=== PATIENT | male | born 1940 | race Caucasian/White ===

== ENCOUNTER 2017-10-09 07:16 | Outpatient (CLI) | payer OTHER, MEDICARE ==
[2017-10-09] MEDS ORDERED: DIATR MEGLU/DIATRIZ SOD 30 ML SOLUTION PO ONE (07:39)
[2017-10-09] MEDS ORDERED: IOHEXOL 100 ML IV ONE (10:00)
== END 2017-10-09 20:34 | disposition home or self-care (01) ==
LOC: SNM 07:16
PROVIDERS: ATTEND Urology Pediatric Urology
DX: C61 Malignant neoplasm of prostate (principal); N40.0 Benign prostatic hyperplasia without lower urinary tract symptoms; K57.30 Diverticulosis of large intestine without perforation or abscess without bleeding; N28.1 Cyst of kidney, acquired; M41.85 Other forms of scoliosis, thoracolumbar region
CPT/HCPCS: 74177; 78306; A9503; Q9964; Q9967

== ENCOUNTER 2018-04-16 12:45 | Outpatient (CLI) | payer OTHER, MEDICARE | END 2018-04-16 19:41 | disposition home or self-care (01) | LOC: SRD 12:45 | PROVIDERS: ATTEND Internal Medicine | DX: J18.9 Pneumonia, unspecified organism (principal); J44.9 Chronic obstructive pulmonary disease, unspecified | CPT/HCPCS: 71046-TC ==

== ENCOUNTER 2018-11-10 14:23 | Inpatient (IN) | payer OTHER, MEDICARE ==
[~2018-11-10] VITALS: Ht 175.3 cm; Wt 77.1 kg
[2018-11-10 14:27] VITALS: BP_SYST 140
[2018-11-10] MEDS ORDERED: methylPREDNISolone SOD SUCC/PF 62.5 MG/ML VIAL IVP ONE (15:15)
[2018-11-10] MEDS ORDERED: IPRATROPIUM/ALBUTEROL SULFATE 3 ML AMPUL.NEB (DUONEB) INH ONE (15:15)
[2018-11-10 15:19] LABS: BASOPHILS % (AUTO) 0.1 % (0.0-2.0); EOSINOPHILS # (AUTO) 0.2 K/uL (0.0-0.4); EOSINOPHILS % (AUTO) 2.9 % (0.0-4.0); HEMATOCRIT 39.4 % (36-54); HEMOGLOBIN 13.3 g/dL (14.0-18.0); LYMPHOCYTES # (AUTO) 1.6 K/uL (1.0-5.5); LYMPHOCYTES % (AUTO) 29.1 % (20.5-51.5); MEAN CORPUSCULAR HEMOGLOBIN 31 pg (27-31); MEAN CORPUSCULAR HGB CONC 34 % (32-36); MEAN CORPUSCULAR VOLUME 92 fL (79.0-98.0); MONOCYTES # (AUTO) 0.6 K/uL (0.0-1.0); MONOCYTES % (AUTO) 11.2 % (1.7-9.3); NEUTROPHILS % (AUTO) 56.7 % (40.0-70.0); PLATELET COUNT (AUTO) 156 K/uL (130-430); RED BLOOD CELL COUNT(AUTO) 4.27 MIL/uL (4.2-6.2); RED CELL DISTRIBUTION WIDTH 13.5 % (9.0-15.0); WHITE BLOOD COUNT (AUTO) 5.3 K/uL (4.8-10.8)
[2018-11-10] MEDS ORDERED: IPRATROPIUM/ALBUTEROL SULFATE 3 ML AMPUL.NEB (DUONEB) ONE (15:24)
[2018-11-10 15:32] LABS: ANION GAP 7 (5-15); CALCIUM 8.8 mg/dL (8.4-11.0); CHLORIDE 98 mmol/L (98-107); CREATININE 1.02 mg/dL (0.55-1.30); GLUCOSE 92 mg/dL (70-99); POTASSIUM 4.3 mmol/L (3.5-5.1); SODIUM SERUM 132 mmol/L (136-145); UREA NITROGEN, BLOOD 21 mg/dL (8-21)
[2018-11-10 15:36] LABS: INR 1.1 (0.80-1.20); PROTHROMBIN TIME 10.9 SECS (9.5-12.5)
[2018-11-10 15:37] LABS: ALANINE AMINOTRANSFERASE 23 U/L (12-78); ALBUMIN 3.2 g/dL (3.4-4.8); ASPARTATE AMINOTRANSFERASE 20 U/L (10-37); TOTAL BILIRUBIN 0.8 mg/dL (0.0-1.0)
[2018-11-10] MEDS ORDERED: HYDR-4274 PO (17:13)
[2018-11-10] MEDS ORDERED: LIP20 PO (17:14)
[2018-11-10 18:41] VITALS: BP_SYST 117
[2018-11-10 20:00] VITALS: BP_SYST 107
[2018-11-10] MEDS ORDERED: NON-FORMULARY MEDICATION (Hydrocodone/Acetaminophen (Norco 10-325 Tablet) 1 EACH) PO SCH (21:00)
[2018-11-10] MEDS ORDERED: IPRATROPIUM/ALBUTEROL SULFATE 3 ML AMPUL.NEB (DUONEB) INH PRN (21:00)
[2018-11-10] MEDS ORDERED: TEMAZEPAM 15 MG CAPSULE PO PRN (21:30)
[2018-11-10] MEDS ORDERED: ONDANSETRON HCL 4 MG/2 ML VIAL IVP PRN (21:30)
[2018-11-10] MEDS ORDERED: ACETAMINOPHEN 325 MG TABLET PO PRN (21:30)
[2018-11-10] MEDS ORDERED: HYDROcodone/ACETAMIN 10-325 MG TAB PO PRN (21:30)
[2018-11-10] MEDS: ATORVASTATIN 20 MG TABLET PO SCH (22:49)
[2018-11-10] MEDS: methylPREDNISolone SOD SUCC 40 MG/ML VIAL IVP SCH (22:49)
[2018-11-10] MEDS: DOCUSATE SODIUM 250 MG CAPSULE PO SCH (22:49)
[2018-11-10] MEDS ORDERED: cefTRIAXone 1 GM IVPB PREMIX 50 ML IV ONE (22:59)
[2018-11-10] MEDS ORDERED: AZITHROMYCIN 500 MG/VIAL (ZITHROMAX) IV ONE (22:59)
[2018-11-10] MEDS: AZITHROMYCIN 500 MG in NS 250 ML IV SCH (23:00)
[2018-11-10] MEDS: cefTRIAXone 1 GM in D5W 50 ML IV SCH (23:03)
[2018-11-10] MEDS: IPRATROPIUM/ALBUTEROL SULFATE 3 ML AMPUL.NEB (DUONEB) INH SCH (23:16)
[2018-11-10] MEDS: BUDESONIDE 0.5 MG/2 ML AMPUL.NEB INH SCH (23:21)
[2018-11-10 23:36] VITALS: BP_SYST 107
[2018-11-11 00:10] VITALS: BP_SYST 137
[2018-11-11] MEDS: IPRATROPIUM/ALBUTEROL SULFATE 3 ML AMPUL.NEB (DUONEB) INH SCH ×3 (07:22→19:53)
[2018-11-11] MEDS: BUDESONIDE 0.5 MG/2 ML AMPUL.NEB INH SCH ×2 (07:31→19:53)
[2018-11-11 07:45] VITALS: BP_SYST 134
[2018-11-11] MEDS: DOCUSATE SODIUM 250 MG CAPSULE PO SCH ×2 (08:10→21:00)
[2018-11-11] MEDS: methylPREDNISolone SOD SUCC 40 MG/ML VIAL IVP SCH ×2 (08:10→17:03)
[2018-11-11 12:02] VITALS: BP_SYST 129
[2018-11-11] MEDS ORDERED: FLUCONAZOLE 200 MG TABLET (DIFLUCAN) PO ONE (13:30)
[2018-11-11 16:06] VITALS: BP_SYST 134
[2018-11-11] MEDS: ATORVASTATIN 20 MG TABLET PO SCH (22:17)
[2018-11-11] MEDS: AZITHROMYCIN 500 MG in NS 250 ML IV SCH (22:17)
[2018-11-11] MEDS: cefTRIAXone 1 GM in D5W 50 ML IV SCH (22:17)
[2018-11-12 00:23] VITALS: BP_SYST 129
[2018-11-12] MEDS: methylPREDNISolone SOD SUCC 40 MG/ML VIAL IVP SCH ×3 (00:33→17:22)
[2018-11-12] MEDS: IPRATROPIUM/ALBUTEROL SULFATE 3 ML AMPUL.NEB (DUONEB) INH SCH ×4 (07:08→19:47)
[2018-11-12] MEDS: BUDESONIDE 0.5 MG/2 ML AMPUL.NEB INH SCH ×2 (07:08→20:11)
[2018-11-12] MEDS: DOCUSATE SODIUM 250 MG CAPSULE PO SCH ×2 (07:33→20:42)
[2018-11-12 08:00] VITALS: BP_SYST 149
[2018-11-12] MEDS: FLUCONAZOLE 200 MG TABLET (DIFLUCAN) PO SCH (08:32)
[2018-11-12 11:23] VITALS: BP_SYST 147
[2018-11-12 15:16] VITALS: BP_SYST 136
[2018-11-12 20:00] VITALS: BP_SYST 132
[2018-11-12] MEDS: ATORVASTATIN 20 MG TABLET PO SCH (20:42)
[2018-11-12] MEDS: cefTRIAXone 1 GM in D5W 50 ML IV SCH (20:42)
[2018-11-12] MEDS: AZITHROMYCIN 500 MG in NS 250 ML IV SCH (21:59)
[2018-11-13 00:35] VITALS: BP_SYST 141
[2018-11-13] MEDS: methylPREDNISolone SOD SUCC 40 MG/ML VIAL IVP SCH ×2 (01:12→08:32)
[2018-11-13] MEDS: IPRATROPIUM/ALBUTEROL SULFATE 3 ML AMPUL.NEB (DUONEB) INH SCH ×3 (07:26→15:20)
[2018-11-13] MEDS: BUDESONIDE 0.5 MG/2 ML AMPUL.NEB INH SCH (07:36)
[2018-11-13 08:27] VITALS: BP_SYST 150
[2018-11-13] MEDS: FLUCONAZOLE 200 MG TABLET (DIFLUCAN) PO SCH (08:30)
[2018-11-13] MEDS: DOCUSATE SODIUM 250 MG CAPSULE PO SCH (08:33)
[2018-11-13] MEDS ORDERED: AZITHROMYCIN 250 MG TABLET PO ONE (11:15)
[2018-11-13 11:55] VITALS: BP_SYST 142
[2018-11-13 12:12] VITALS: BP_SYST 142
[2018-11-13 15:22] VITALS: BP_SYST 123; BP_SYST 152
[2018-11-13 16:30] VITALS: BP_SYST 152
[2018-11-13] MEDS ORDERED: methylPREDNISolone SOD SUCC 40 MG/ML VIAL IVP SCH (21:00)
== END 2018-11-13 17:10 | disposition home or self-care (01) | DRG 189 ==
LOC: SED 14:23 → SMU 16:54
PROVIDERS: ADMIT Internal Medicine; ATTEND Internal Medicine
DX: J96.00 Acute respiratory failure, unspecified whether with hypoxia or hypercapnia (principal); I10 Essential (primary) hypertension; E78.5 Hyperlipidemia, unspecified; N40.0 Benign prostatic hyperplasia without lower urinary tract symptoms; J43.9 Emphysema, unspecified; H40.9 Unspecified glaucoma; E78.00 Pure hypercholesterolemia, unspecified; M19.90 Unspecified osteoarthritis, unspecified site; M47.9 Spondylosis, unspecified; G89.4 Chronic pain syndrome; Z87.891 Personal history of nicotine dependence; Z90.79 Acquired absence of other genital organ(s)
CPT/HCPCS: 36415; 36600; 71045; 71250-TC; 80053; 82550-TC; 82803-TC; 83880; 84484; 85025; 85379; 85610-TC; 85730-TC; 87205-TC; 93005; 94640; 94760; 96374; 97116-GP; 97530-GP; 99285; J0456; J0696; J1030; J2930; J7050; J7060; J7620; J7626; Q0144

== ENCOUNTER 2020-09-26 15:20 | Emergency (ER) | payer OTHER, MEDICARE, SELFPAY ==
[~2020-09-26] VITALS: Ht 152.4 cm; Wt 69.4 kg
[~2020-09-26 15:20] MED LIST: HYDR-4274 PO; LIP20 PO
[2020-09-26 15:32] VITALS: BP_SYST 157
[2020-09-26 16:42] LABS: ANION GAP 6 (5-15); CALCIUM 9.2 mg/dL (8.4-11.0); CHLORIDE 101 mmol/L (98-107); CREATININE 1.03 mg/dL (0.55-1.30); GLUCOSE 90 mg/dL (70-99); POTASSIUM 4.2 mmol/L (3.5-5.1); SODIUM SERUM 135 mmol/L (136-145); UREA NITROGEN, BLOOD 16 mg/dL (8-21)
[2020-09-26 16:44] LABS: BASOPHILS % (AUTO) 0.2 % (0.0-2.0); EOSINOPHILS % (AUTO) 0.2 % (0.0-4.0); HEMOGLOBIN 11.7 g/dL (14.0-18.0); LYMPHOCYTES # (AUTO) 1.5 K/uL (1.0-5.5); LYMPHOCYTES % (AUTO) 26.7 % (20.5-51.5); MEAN CORPUSCULAR HEMOGLOBIN 28 pg (27-31); MEAN CORPUSCULAR HGB CONC 32 % (32-36); MEAN CORPUSCULAR VOLUME 87 fL (79.0-98.0); MONOCYTES # (AUTO) 0.4 K/uL (0.0-1.0); MONOCYTES % (AUTO) 8.2 % (1.7-9.3); NEUTROPHILS # (AUTO) 3.5 K/uL (1.8-7.7); NEUTROPHILS % (AUTO) 64.7 % (40.0-70.0); PLATELET COUNT (AUTO) 252 K/uL (130-430); RED BLOOD CELL COUNT(AUTO) 4.15 MIL/uL (4.2-6.2); RED CELL DISTRIBUTION WIDTH 15.3 % (9.0-15.0); WHITE BLOOD COUNT (AUTO) 5.5 K/uL (4.8-10.8)
[2020-09-26 16:48] LABS: ALANINE AMINOTRANSFERASE 21 U/L (12-78); ALBUMIN 3.2 g/dL (3.4-4.8); ASPARTATE AMINOTRANSFERASE 18 U/L (10-37); TOTAL BILIRUBIN 0.5 mg/dL (0.0-1.0)
[2020-09-26 17:15] VITALS: BP_SYST 121
[2020-09-26] MEDS ORDERED: PRED1TAB PO (19:21)
[2020-09-27] MEDS ORDERED: IPRA3AMP9 INH (10:51)
[2020-09-27] MEDS ORDERED: DOXY100C PO (10:51)
[2020-09-27] MEDS ORDERED: PRED10TA PO (10:55)
== END 2020-09-26 17:15 | disposition home or self-care (01) ==
LOC: SED 15:20
DX: J44.1 Chronic obstructive pulmonary disease with (acute) exacerbation (principal); R91.8 Other nonspecific abnormal finding of lung field; E78.00 Pure hypercholesterolemia, unspecified; Z79.899 Other long term (current) drug therapy
CPT/HCPCS: 36415; 71045; 80053; 84484; 85025; 87040-TC; 93005; 99285

== ENCOUNTER 2020-09-26 18:58 | Observation (INO) | payer OTHER, MEDICARE, SELFPAY ==
[~2020-09-26] VITALS: Ht 180.3 cm; Wt 69.5 kg
[2020-09-26 18:58] VITALS: BP_SYST 152
--- NOTE | 2020-09-26 19:00 | NUR ---
PATIENT BROUGHT TO ROOM, CHANGED INTO GOWN AND PLACED ONTO MONITOR.
--- NOTE | 2020-09-26 19:01 | NUR ---
MD CORMIER AT BEDSIDE ASSESSING PATIENT
--- NOTE | 2020-09-26 19:05 | NUR ---
PATIENT C/C SOB WHICH HAS GOTTEN WORSE OVER THE LAST 5 DAYS. 20g PIV PLACED TO LEFT AC, PATIENT TOLERATED WELL. PATIENT ON 2 LITERS NC 98% ON MONITOR.
--- NOTE | 2020-09-26 19:08 | NUR ---
ADMISSION ORDERS RC'VD FROM DR. ORONA. PATIENT TO BE ADMITTED TO MED SURG FOR LUNG MASS AND COPD EXACERBATION. ORDER FOR REGULAR DIET RC'VD, ORDERS PLACED AND TRANSCRIBED.
--- NOTE | 2020-09-26 19:10 | NUR ---
BEDSIDE REPORT GIVEN TO NOVEMBER RN, ALL QUESTIONS ANSWERED.
--- NOTE | 2020-09-26 19:14 | NUR ---
Medication reconciliation completed with information provided by patient. Any prior medication reconciliation on file was reviewed and corrected.
[2020-09-26] MEDS ORDERED: PRED1TAB PO (19:21)
--- NOTE | 2020-09-26 19:35 | NUR ---
Swabs COVID-19 and send to lab.
--- NOTE | 2020-09-26 19:41 | NUR ---
Patient transported to radiology via wheelchair, accompanied by RT.
--- NOTE | 2020-09-26 20:57 | NUR ---
Patient will be admitted to care of Dr. Frost. Admitted to M/S unit. Will go to room 112B. Belongings list completed. Complete and up to date summary report printed. SBAR report to be given at bedside with opportunity for questions.
--- NOTE | 2020-09-26 21:19 | NUR ---
Patient transfer to ROOM 112B via [facility].
--- NOTE | 2020-09-26 21:22 | NUR ---
ADMISSION NOTE Received patient from ER via gurney. Patient admitted with diagnosis of lung mass/copd. Patient is awake, alert, oriented X 4. Patient oriented to hospital room, call light, toileting, pain management and safety-teach back done. Patient informed that REQUEL will be nurse and that their room number is 112B. Personal belongings checked and Belongings List documented. Call light within reach.
[2020-09-26 21:24] VITALS: BP_SYST 166
--- NOTE | 2020-09-26 21:40 | NUR ---
Initial RN notes Received pt from ED, pt AAOx4, no s/s distress noted. O2 sat 95% on 2L via NC. Pt denies any pain. IV saline lock L. AC 20G good blood return. Oriented pt to call light use, pt verbalized understanding. Call light within reach. Bed low, locked, siderails up x3, alarm on. To monitor.
[2020-09-26 22:15] VITALS: BP_SYST 146
[2020-09-26] MEDS ORDERED: IPRATROPIUM/ALBUTEROL SULFATE 3 ML AMPUL.NEB (DUONEB) ONE (23:05)
--- NOTE | 2020-09-26 23:06 | NUR ---
Shortness of breath/Breathing treatment RT gave pt breathing treatment. Pt got short of breath after using the urinal at the bedside. Pt O2 sat 93-96% on 2L via NC. Educated pt to use the call light and not to get out of bed due to shortness of breath, pt verbalized understanding. Pt voided approx 200ml in the urinal.
[2020-09-26] MEDS ORDERED: HYDROcodone/ACETAMIN 10-325 MG TAB PO SCH (23:15)
[2020-09-26] MEDS ORDERED: NALOXONE HCL 0.4 MG/ML AMP (NARCAN) IVP PRN (23:15)
[2020-09-26] MEDS ORDERED: DEXAMETHASONE SOD PHOSPHATE 10 MG/ML VIAL IVP ONE (23:15)
[2020-09-26 23:28] VITALS: BP_SYST 146
[2020-09-26] MEDS: IPRATROPIUM/ALBUTEROL SULFATE 3 ML AMPUL.NEB (DUONEB) INH SCH (23:31)
[2020-09-26 23:51] VITALS: BP_SYST 154
[2020-09-27] MEDS: IPRATROPIUM/ALBUTEROL SULFATE 3 ML AMPUL.NEB (DUONEB) INH SCH ×4 (03:37→11:39)
--- NOTE | 2020-09-27 03:40 | NUR ---
Rounds Pt asleep, respirations even and unlabored. Call light within reach. Bed low, locked, siderails up x3, alarm on. To monitor.
--- NOTE | 2020-09-27 06:10 | NUR ---
Closing notes Pt alert, awake, no s/s distress noted. O2 2L on via NC. Pt denies any pain. IV saline lock L. AC 20G clear and patent. Call light within easy reach. Bed low, locked, siderails up x3, alarm on. Nader SCDs on. To endorse to AM nurse.
[2020-09-27 08:00] VITALS: BP_SYST 143
--- NOTE | 2020-09-27 08:00 | NUR ---
initial notes rec patient awake alert with ivl intact. no infiltration noted. resp easy and unlabored. no sob noted but with non productive cough. dr chandra at bedside saw and spoke with the patient. denies pain. bed to the lowest position and side rails up and locked. call light within reached and knows when to call for assistance.
[2020-09-27] MEDS ORDERED: LEVOFLOXACIN 500 MG/D5W 100 ML IV SCH (09:00)
[2020-09-27] MEDS ORDERED: predniSONE 10 MG TABLET PO SCH (09:00)
--- NOTE | 2020-09-27 09:41 | NUR ---
Nutrition Update Felipe Scale 16 noted. Pt admitted for lung mass, COPD. Diet: regular BMI: 21.4 kg/m2 RD to follow per nutrition care standards.
[2020-09-27] MEDS ORDERED: IPRA3AMP9 INH (10:51)
[2020-09-27] MEDS ORDERED: DOXY100C PO (10:51)
[2020-09-27] MEDS ORDERED: PRED10TA PO (10:55)
[2020-09-27] MEDS ORDERED: IPRATROPIUM/ALBUTEROL SULFATE 3 ML AMPUL.NEB (DUONEB) ONE (11:09)
--- NOTE | 2020-09-27 11:54 | NUR ---
CM Note: Upon discharged: I s/w the pt and spouse, both declined the HH set up as per dr. Frost ordered. Spouse said , she will call dr. Frost for the HH nurse when needed. Son, Peña will meat pickler the pt today. WOJCIECH Mai made aware. She will be given the dc instruction to son as well.
[2020-09-27 12:32] VITALS: BP_SYST 134
[2020-09-27 12:34] VITALS: BP_SYST 134
--- NOTE | 2020-09-27 13:35 | NUR ---
closing notes pt was discharged after seen by dr ernst. ivl and id band were removed. was wheeled outside and gave instructions to patient's and son. instructed to go to there pharmacy and excels[facility] picker prescribed meds from dr ernst. instructed to make an appt too with dr orellana a product marketing intern at [facility]. instructed to make the appt my since it his first appt with dr orellana. also emphasize with the re refusing home health . stable and needs attended. pt with portable oxygen .
--- NOTE | 2020-09-27 14:55 | NUR ---
END TIME LATE ENTRY LEVOFLOXACIN 100ML/HR COMPLETED AND DISCONTINUED ON 09/27/20 AT 1114 AM
[2020-09-27] MEDS ORDERED: ATORVASTATIN 20 MG TABLET PO SCH (21:00)
== END 2020-09-27 13:25 | disposition home or self-care (01) ==
LOC: SED 18:58 → INTOOBSV 19:07 → SMU 19:07
PROVIDERS: ADMIT Internal Medicine; ATTEND Internal Medicine
DX: R91.8 Other nonspecific abnormal finding of lung field (principal); Z20.822 Contact with and (suspected) exposure to COVID-19; J96.21 Acute and chronic respiratory failure with hypoxia; J43.9 Emphysema, unspecified; J18.9 Pneumonia, unspecified organism; I10 Essential (primary) hypertension; E78.5 Hyperlipidemia, unspecified; I70.90 Unspecified atherosclerosis; G89.4 Chronic pain syndrome; N40.0 Benign prostatic hyperplasia without lower urinary tract symptoms; E78.00 Pure hypercholesterolemia, unspecified; M41.80 Other forms of scoliosis, site unspecified; Z87.891 Personal history of nicotine dependence; Z79.899 Other long term (current) drug therapy
CPT/HCPCS: 36415; 71250; 76376; 87426; 94640 ×2; 94760; 96365; 96375; 99285; G0378; J1100; J1956; J7512